=== PATIENT | female | born 1950 | race Caucasian/White ===

== ENCOUNTER → 2021-08-16 | Outpatient (CLI) | payer OTHER | LOC: RAD 15:56 | PROVIDERS: ATTEND Internal Medicine | DX: R06.2 Wheezing (principal); R06.00 Dyspnea, unspecified ==

== ENCOUNTER → 2021-09-01 | Outpatient (CLI) | payer OTHER | LOC: SJCVCIMAG 10:17 | PROVIDERS: ATTEND Internal Medicine | DX: R07.89 Other chest pain (principal); R06.00 Dyspnea, unspecified ==

== ENCOUNTER → 2021-09-22 | Outpatient (CLI) | payer OTHER ==
--- NOTE | ~2021-09-22 | PFR/MVV ---
[facility] [place] [address] PULMONARY FUNCTION MVV/REPORT Name: EZRA CUELLAR Room #: [facility].#: [id number] Admission: 09/22/21 Attend Phys: Pradeep Epps MD Discharge: Date of : 48 Report #: [id number] THIS REPORT FOR: //name// >> SPIROMETRY: (BTPS) Height: 64 in cm Weight: 241 lbs kg Exam Date: 09/22/21 PRE-RX POST-RX PRED BEST %PRED BEST %PRED %CHG FVC LITERS . 2.80 . 1.86 . 66 . 1.58 . 56 . -8 FEV1 LITERS . 1.99 . 1.43 . 72 . 1.12 . 56 . -16 FEV1/FVC % . 71 . 77 . 108 . 71 . 99 . -9 XOP33-22% L/Sec . 2.26 . 1.20 . 53 . 0.71 . 32 . -38 PEF L/SEC . 5.45 . 6.03 . 111 . 4.96 . 91 . -15 FEF50/FIF50 UNITLESS . 2.80 . 2.42 . 86 . 0.97 . 35 . -61 MVV L/Min . 83 . 63 . 76 f 1/Min . . . >> LUNG VOLUMES: (BTPS) PRE-RX POST-RX PRED AVG %PRED AVG %PRED %CHG VC Liters . 2.80 . 2.12 . 76 . . . TLC Liters . 4.81 . 3.35 . 70 . . . RV Liters . 1.94 . 1.23 . 63 . . . RV/TLC % . 41 . 37 . 91 . . . FRC PL Liters . 2.04 . 1.25 . 61 . . . FRC N2 Liters . 2.04 . . . . . ERV Liters . 0.95 . 0.06 . 7 . . . IC Liters . 1.90 . 2.10 . 110 . . . >> DIFFUSION: DLCO ml/Min/mmHg . 25.1 . 15.1 . 60 . . . DL [place] ml/Min/mmHg . 25.1 . 15.1 . 60 . . . DLCO/VA ml/Min/mmHg . 3.47 . 5.07 . 146 . . . VA Liters . . 2.97 . . . . COMMENTS: COMMENTS: >> RESISTANCE: [facility] [address] [place] [address] PULMONARY FUNCTION MVV/REPORT Name: POLOEZRA Moses Room #: [facility].#: [id number] Admission: 09/22/21 Attend Phys: Pradeep Epps MD Discharge: Date of : 48 Report #: [id number] PRE-RX PRED AVG %PRED Raw Total cmH20/L/Sec . . 5.49 . Raw Insp cmH20/L/Sec . . 2.24 . Raw Exp cmH20/L/Sec . . 5.25 . Raw cmH20/L/Sec . 1.94 . 4.08 . 210 Gaw L/Sec/cmH20 . 0.490 . 0.245 . 50 sRaw cmH20 Sec . 3.97 . 11.38 . 286 sGaw l/cmH20 Sec . 0.252 . 0.088 . 35 Vtq Liters . . 2.79 . # = OUTSIDE 95% CONFIDENCE INTERVAL CALIBRATION: PRED: 3.00 ACTUAL: EXP 3.01 INSP 3.02 [facility]OL10-06 [facility] [place] N-1804-4 >> INTERPRETATION/IMPRESSION: DATE OF SERVICE: 09/22/2021 PULMONARY FUNCTION TEST Forced vital capacity is mildly decreased. FEV1 is mildly decreased. FEV1/FVC ratio is normal. No improvement postbronchodilator. Lung volumes reveal a mild restrictive pattern. Diffusion capacity is mildly decreased. IMPRESSION: Mild restrictive abnormality with low diffusion. This can be seen in interstitial lung disease. Clinical correlation is recommended. By: Pradeep Epps MD /nt
== END ==
LOC: RAD 09:20
PROVIDERS: ATTEND Internal Medicine
DX: R06.02 Shortness of breath (principal); R06.09 Other forms of dyspnea; Z20.822 Contact with and (suspected) exposure to COVID-19